=== PATIENT | male | born 1960 | race Caucasian/White ===

== ENCOUNTER 2021-03-20 06:15 | Inpatient (IN) | payer BC ==
[~2021-03-20] VITALS: Ht 177.8 cm; Wt 78.5 kg
[~2021-03-20 06:15] MED LIST: LISI10TA22 PO; LR 1,000 ML IV ONE; ceFAZolin SOD 2 GM in IV 1 EA IV ONE
[2021-03-20] MEDS ORDERED: LIDOCAINE 2% 100MG/5ML SDV (FOR ANES.) As Ordered ONE ×3 (07:06→08:08)
[2021-03-20] MEDS ORDERED: propofoL 200 MG/20 ML VIAL As Ordered ONE ×2 (07:06→10:30)
[2021-03-20] MEDS ORDERED: ROCURONIUM BROMIDE 50 MG/5 ML VIAL As Ordered ONE ×3 (07:06→10:15)
[2021-03-20] MEDS ORDERED: dexameTHASONE 4 MG/ML 1ML VIAL (J1100 PER 1MG) As Ordered ONE (07:06)
[2021-03-20] MEDS ORDERED: fentaNYL 250 MCG/5 ML INJECTION (J3010) As Ordered ONE (07:07)
[2021-03-20] MEDS ORDERED: MIDAZOLAM INJ 2MG/2ML VIAL (J2250 PER 1MG) As Ordered ONE (07:07)
[2021-03-20] MEDS ORDERED: LIDOCAINE 1% MDV 20ML VIAL As Ordered ONE (07:12)
[2021-03-20] MEDS ORDERED: BUPIVACAINE HCL 0.25% 30ML VIAL As Ordered ONE ×2 (07:12→11:49)
[2021-03-20] MEDS ORDERED: ACETAMINOPHEN 1000MG 100ML IV BTL (OFIRMEV) (J0131 PER 10MG) As Ordered ONE ×2 (07:14→10:00)
[2021-03-20] MEDS ORDERED: ONDANSETRON 4MG/2ML VIAL As Ordered ONE (07:14)
[2021-03-20] MEDS ORDERED: PERCOCET 5MG/325MG TAB PO PRN ×2 (07:35→12:10)
[2021-03-20] MEDS ORDERED: ACETAMINOPHEN TAB 650MG DOSE (2X325MG) PO PRN (07:35)
[2021-03-20] MEDS ORDERED: ONDANSETRON 4MG/2ML VIAL IV PRN ×2 (07:35→12:10)
[2021-03-20] MEDS ORDERED: LIDOCAINE 1% SDV 30ML VIAL As Ordered ONE ×2 (08:10→11:50)
[2021-03-20] MEDS ORDERED: SUGAMMADEX SODIUM 500 MG/5 ML VIAL (BRIDION) As Ordered ONE (09:51)
[2021-03-20] MEDS ORDERED: KETOROLAC 60MG 2ML VIAL As Ordered ONE (09:51)
[2021-03-20] MEDS ORDERED: ePHEDrine SULFATE 25 MG/5 ML(5MG/ML) SYRINGE As Ordered ONE (11:05)
[2021-03-20] MEDS ORDERED: LR 1,000 ML IV SCH (12:10)
[2021-03-20] MEDS ORDERED: fentaNYL 100 MCG/2 ML INJECTION (J3010) IV PRN (12:10)
[2021-03-20] MEDS ORDERED: METOCLOPRAMIDE INJ 10MG/2ML VIAL (J2765 PER 1) IV PRN (12:10)
--- NOTE | 2021-03-20 12:24 | ROOPDOC ---
[facility] Report Of Operation Report of Operation DATE OF PROCEDURE: 03/20/21 PREPROCEDURE DIAGNOSIS: Right Renal Neoplasm. POSTPROCEDURE DIAGNOSIS: Right Renal Neoplasm. PROCEDURE: Right Robotic-assisted Laparoscopic Radical Nephrectomy (adrenal- sparing). SURGEON: Curry Andrade MD METAL FURNITURE PANEL COVERER: Nicolasa Flanagan NP ANESTHESIA: General OPERATIVE INDICATIONS: This is a 61 year old male found to have a 4cm enhancing mass on his right kidney. Given the central extension of the mass, it was recommended that he undergo a radical nephrectomy for treatment of this likely malignant lesion. He was brought to the operating room today for treatment. DESCRIPTION OF PROCEDURE: The patient was brought to the operating room and gen eral anesthesia was induced. Prophylactic antibiotics were infused. A Prasad catheter was inserted into the bladder under sterile conditions. The patient was then placed in the left lateral decubitus position. All pressure points were appropriately padded and an axillary roll was placed. He was secured to the table with tape. The patient was then prepped and draped in the usual sterile fashion. The initial incision was for an 8mm port in line with the 11th rib along the lateral rectus margin. A Veress needle was then utilized to achieve the pneumoperitoneum. An 8mm port was then placed in through this incision and through which the camera was inserted. There were no injuries from Veress needle placement or initial trocar placement. The remaining ports were then placed under vision. The right hand robotic port was placed along the costal margin. Another 5 mm port was placed just inferior to the xyphoid for access for a liver retractor. A 12mm robotic port was placed just inferior to the camera port, also on the lateral rectus margin. The left hand robotic port was placed between the anterior-superior iliac spine and the umbilicus. A 15mm diet assistant port was placed inferior and medial to the camera port. The robot was then docked. We began by lifting up the liver with a laparoscopic locking Allis clamp. Next the right colon was dissected off of Gerota's fascia. We then Kocherized the duo denum. At this point the inferior vena cava (IVC) was identified. A plane was made onto the lateral aspect of the IVC. The patient had one right renal vein and one right renal artery. The artery was carefully dissected and then ligated with 3 Weck clips. It was then transected, leaving 2 clips on the stay side. The renal vein was then carefully dissected. Next, a robotic 45mm stapler was utilized to ligate and transect the right renal vein. Once the hilum was taken, a plane onto the upper pole of the kidney was created and the right adrenal gland was mobilized off of the kidney. The kidney was then carefully dissected on all sides until it was only connected by the right ureter. The ureter was then ligated with Weck clips and completed transected in between. Once the kidney was free, it was placed in a large Endocatch bag for future retrieval. We then checked for hemostasis and it appeared excellent. Timoteo hemostatic agent was then placed in the nephrectomy bed. The robot was undocked. We then used a Troy-Alana fascial closure device to place a #0 Vicryl free tie through the fascia of the 15 mm camera port site. We then extended the 12 mm port site and used it as the extraction incision. We then dissected down to the fascia. The fascia was then extended using electrocautery. The muscle was bluntly spread. The specimen was then extracted through this incision. It was handed off the table to send for pathology. We then closed the fascia of the extraction incision using a running #0 Vicryl suture. At this point, the abdomen was reinsufflated and we looked back in with the camera and there was no bleeding underneath the extraction site. No abdominal contents were caught within the closure either. We then removed all the ports under direct vision and there was no bleeding from any of the port sites. At this point, the previously placed #0 Vicryl free ties were tied down and all the incisions were thoroughly irrigated. The subcutaneous tissue of the extraction incision was then reapproximated using interrupted #3-0 Vicryl suture. We then closed the skin of each site using a running #4-0 subcuticular Monocryl stitch. Local anesthetic was then applied to each incision and Dermabond was then applied and this marked the conclusion of the procedure. The patient was then taken out of the left lateral decubitus position, awakened from anesthesia and transported to the recovery room in stable condition. ESTIMATED BLOOD LOSS: 15 mL INTRAOPERATIVE COMPLICATIONS: None SPECIMENS: Right kidney. PLAN: The patient will be admitted to the hospital postoperatively and he will be discharged home once his renal function is stable, his pain is controlled and he is tolerating a regular diet. CURRY ANDRADE MD Mar 20, 2021 07:50
[2021-03-20 14:22] VITALS: BP 150/84
[2021-03-20 15:00] VITALS: BP 144/82
[2021-03-20] MEDS: DOCUSATE SODIUM 100MG CAPSULE PO SCH ×2 (15:09→20:11)
[2021-03-20] MEDS: NS 1,000 ML IV SCH ×2 (15:10→20:11)
[2021-03-20 15:30] VITALS: BP 144/81
[2021-03-20 16:30] VITALS: BP 160/87
[2021-03-20] MEDS: ceFAZolin SOD 1 GM in D5W MINI-BAG PLUS 50 ML IV SCH ×2 (16:36→23:28)
[2021-03-20 17:30] VITALS: BP 161/87
[2021-03-20 18:00] VITALS: BP 166/90
[2021-03-20] MEDS ORDERED: LISI20TA33 PO (18:11)
[2021-03-20] MEDS ORDERED: HOME MED LIST COMPLETE! XX SCH (18:15)
[2021-03-20] MEDS: PERCOCET 5MG/325MG TAB PO PRN (23:30)
[2021-03-21] VITALS: BP 172/88
[2021-03-21 00:43] VITALS: BP 142/64
[2021-03-21 03:00] VITALS: BP 135/71
[2021-03-21 06:00] VITALS: BP 138/70
[2021-03-21 06:02] LABS: HEMATOCRIT 39.9 % (42.0-52.0); HEMOGLOBIN 12.8 g/dl (13.5-17.5); MEAN CORPUSCULAR HEMOGLOBIN 28.1 pg (27.0-33.0); MEAN CORPUSCULAR HGB CONC 32.1 g/dl (32.0-36.5); MEAN CORPUSCULAR VOLUME 87.5 fl (80.0-96.0); PLATELET COUNT, AUTOMATED 228 10^3/uL (150-450); RED BLOOD COUNT 4.56 10^6/uL (4.30-6.10); WHITE BLOOD COUNT 10.7 10^3/uL (4.0-10.0)
[2021-03-21 06:21] LABS: CALCIUM LEVEL 8.3 MG/DL (8.8-10.2); CREATININE FOR GFR 1.54 MG/DL (0.70-1.30); POTASSIUM SERUM 4.4 MEQ/L (3.5-5.1)
[2021-03-21] MEDS: PERCOCET 5MG/325MG TAB PO PRN ×2 (07:52→12:34)
--- NOTE | 2021-03-21 08:17 | IPNPDOC ---
Subjective Review oF Systems Chief Complaint The patient is a 61-year-old male admitted with a reason for visit of Renal Mass. Events since Last Encounter No acute events o/n. Patient notes a lot of gas pain. Has passed a small amount of flatus. Incisional pain is mild. No n/v. Ambulated a little last night. No f/c/ns. Objective Physical Examination General Exam: Alert, Cooperative, No Acute Distress ABDOMEN EXAM: Soft, Tenderness (mild), Other (incisions clean/dry/intact) Neuro Exam: Normal Speech Psych Exam: Mental status NL, Mood NL Other physical findings catheter draining clear yellow urine Vital Signs/I&O Vital Signs Date Time Temp Pulse Resp B/P (MAP) Pulse Ox O2 Delivery O2 Flow Rate FiO2 03/21/21 03:00 98.3 51 16 135/71 (92) 95 Room Air 03/20/21 18:00 2.0 I&O- Last 24 Hours up to 6 AM 03/21/21 06:00 Intake Total 3320 ml Output Total 615 ml Balance 2705 ml Laboratory Data Labs 24H Laboratory Tests 2 03/21/21 05:27: Nucleated Red Blood Cells % (auto) 0.0, Anion Gap 5L, Glomerular Filtration Rate 49.0, Calcium Level 8.3L CBC/BMP Laboratory Tests 03/21/21 05:27 Assessment/Plan Date Seen The patient was seen on 03/21/21. Patient Summary This is a 61 y/o M POD1 s/p R robotic radical nephrectomy. Other than gas pain, he is doing well this morning. He had some episodes of bradycardia yesterday postop and last night. His BP has been normal to elevated. He has remained asymptomatic. Hb stable at 12.8. Cr 1.5. Good UOP. Plan/VTE VTE Prophylaxis Ordered?: Yes VTE Exclusion Mechanical Proph: N/A:VTE Prophy Ordered Plan - d/c IVF - d/c Prasad - percocet prn pain - continue home meds - strict I/Os - SCDs in bed - ambulate - incentive spirometry - possible discharge home later today CURRY ANDRADE MD Mar 21, 2021 07:49
[2021-03-21] MEDS: DOCUSATE SODIUM 100MG CAPSULE PO SCH (09:08)
[2021-03-21 10:00] VITALS: BP 138/70
[2021-03-21] MEDS ORDERED: PERCOCET PO (12:33)
[2021-03-21] MEDS ORDERED: DOCU100C16 PO (12:33)
[2021-03-21 13:39] VITALS: BP 138/71
--- NOTE | 2021-03-21 17:20 | DSES ---
DISCHARGE SUMMARY DATE OF ADMISSION: 03/20/2021 DATE OF DISCHARGE: 03/21/2021 ADMISSION DIAGNOSIS: Right renal mass. DISCHARGE DIAGNOSIS: Right renal cell carcinoma. ADMITTING PHYSICIAN: Alverto Navarro MD DISCHARGE PHYSICIAN: Alverto Navarro MD PROCEDURE PERFORMED: Right robotic assisted laparoscopic radical nephrectomy. HISTORY OF PRESENT ILLNESS: This is a 61-year-old male with an approximately 4 cm right renal mass concerning for malignancy. He underwent the above surgery for treatment and was admitted postoperatively. HOSPITALIZATION COURSE: The patient was admitted to the hospital after undergoing the above listed procedure. His postoperative course was unremarkable. His labs during his hospital stay were within acceptable limits. On postoperative day 1, his hemoglobin level was stable at 12.8. His serum creatinine was 1.5. Postoperative day 1, we got him ambulating and he did so without any difficulty. His pain was well controlled with oral pain medications. His diet was advanced and he tolerated a regular diet without nausea and vomiting. His urine output throughout his hospital stay was within normal limits. His Prasad catheter was removed on postoperative day 1 and he voided without any difficulty. By the afternoon of postoperative day 1, he was deemed ready for discharge home. He was discharged home with the plan for him to follow up in urology clinic in approximately 10 to 14 days for pathology results and a postoperative visit. FERNANDO
== END 2021-03-21 15:35 | disposition home or self-care (01) | DRG 442 ==
LOC: M OR 06:15 → M MSPAV 14:28
PROVIDERS: ADMIT Urology; ATTEND Urology
PROC: 8E0W4CZ Robotic Assisted Procedure of Trunk Region, Percutaneous Endoscopic Approach (ICD-10-PCS; 2021-03-20)
PROC: 0TT04ZZ Resection of Right Kidney, Percutaneous Endoscopic Approach (ICD-10-PCS; principal; 2021-03-20 07:38)
DX: C64.1 Malignant neoplasm of right kidney, except renal pelvis (principal)

== ENCOUNTER → 2021-04-04 | Outpatient (CLI) | payer BC ==
[~2021-04-04] MED LIST changes: +DOCU100C16 PO; +LISI20TA33 PO; -LR 1,000 ML IV ONE; +PERCOCET PO; -ceFAZolin SOD 2 GM in IV 1 EA IV ONE
[2021-04-04 11:06] LABS: HEMATOCRIT 42.3 % (42.0-52.0); HEMOGLOBIN 13.4 g/dl (13.5-17.5); MEAN CORPUSCULAR HGB CONC 31.7 g/dl (32.0-36.5); MEAN CORPUSCULAR VOLUME 88.5 fl (80.0-96.0); PLATELET COUNT, AUTOMATED 617 10^3/uL (150-450); RED BLOOD COUNT 4.78 10^6/uL (4.30-6.10); WHITE BLOOD COUNT 10.1 10^3/uL (4.0-10.0)
[2021-04-04 11:29] LABS: CALCIUM LEVEL 9.6 MG/DL (8.8-10.2); CREATININE FOR GFR 1.5 MG/DL (0.70-1.30); GLOMERULAR FILTRATION RATE 50.5 (>49); POTASSIUM SERUM 5.2 MEQ/L (3.5-5.1)
== END ==
LOC: M LAB 09:54
PROVIDERS: ATTEND Urology
DX: C64.1 Malignant neoplasm of right kidney, except renal pelvis (principal)

== ENCOUNTER → 2021-11-22 | Outpatient (CLI) | payer BC ==
[~2021-11-22] MED LIST changes: +ISOVUE-370 76% 100ML VIAL As Ordered ONE
== END ==
LOC: M RAD 08:02
PROVIDERS: ATTEND Urology
DX: C64.1 Malignant neoplasm of right kidney, except renal pelvis (principal); Z90.5 Acquired absence of kidney
CPT/HCPCS: 74170; Q9967

== ENCOUNTER → 2022-09-26 | Outpatient (CLI) | payer BC ==
[~2022-09-26] MED LIST changes: -ISOVUE-370 76% 100ML VIAL As Ordered ONE
== END ==
LOC: M PLARAD 09:08
PROVIDERS: ATTEND Orthopaedic Surgery
DX: M54.16 Radiculopathy, lumbar region (principal)

== ENCOUNTER → 2023-03-18 | Outpatient (CLI) | payer BC ==
[~2023-03-18] MED LIST changes: +ISOVUE-370 76% 100ML VIAL As Ordered ONE
== END ==
LOC: M RAD 08:20
PROVIDERS: ATTEND Urology
DX: C64.1 Malignant neoplasm of right kidney, except renal pelvis (principal); Z90.5 Acquired absence of kidney
CPT/HCPCS: 74170; Q9967

== ENCOUNTER → 2024-03-28 | Outpatient (CLI) | payer BC | LOC: M RAD 14:47 | PROVIDERS: ATTEND Urology | DX: C64.1 Malignant neoplasm of right kidney, except renal pelvis (principal); Z90.5 Acquired absence of kidney; K44.9 Diaphragmatic hernia without obstruction or gangrene | CPT/HCPCS: 74170; Q9967 ==